=== PATIENT | male | born 1995 | race Caucasian/White ===

== ENCOUNTER 2023-11-06 12:42 | Emergency (ER) | payer OTHER ==
[~2023-11-06] VITALS: Ht 172.7 cm; Wt 64.0 kg
[2023-11-06 12:54] VITALS: BP 126/83; TEMP 98.2; O2SAT 100
== END 2023-11-06 13:19 ==
LOC: ER 12:49
DX: Z02.89 Encounter for other administrative examinations (principal); Z04.3 Encounter for examination and observation following other accident